=== PATIENT | female | born 1935 | race Caucasian/White ===

== ENCOUNTER 2017-04-20 14:02 | Emergency (ER) | payer OTHER ==
--- NOTE | 2017-04-20 14:42 | CPEKG ---
Heart Rate: 97 RR Interval: 619 P-R Interval: 156 QRSD Interval: 132 QT Interval: 384 QTC Interval: 488 P [place]: 73 QRS [place]: -40 T Wave [place]: 106 EKG Severity - ABNORMAL ECG - EKG Impression: SINUS TACHYCARDIA EKG Impression: MULTIPLE ATRIAL PREMATURE COMPLEXES EKG Impression: LEFT BUNDLE BRANCH BLOCK Electronically Signed By: Myra Paul 21-Apr-2017 00:28:11
--- NOTE | 2017-04-20 14:55 | EDPHY ---
H & P Stated Complaint: Cough x 1 mo;sent to ED from for eval of abnl EKG Time Seen by Provider: 04/20/17 14:52 HPI/ROS: CHIEF COMPLAINT: Abnormal EKG, cough HISTORY OF PRESENT ILLNESS: This patient is a pleasant 82 year old female arriving with her daughter following an abnormal EKG at urgent care earlier today. Previous EKGs show a left bundle branch, which is not new. She has had a productive cough and fatigue for the past month. She has been hospitalized twice for pneumonia, with the last hospitalization for pneumonia being a few years ago. She is in the process of moving to [place] from [place], and arrived here 04/08/17, two weeks ago. She has been coughing so much she feels quite exhausted, and has been sleeping much more than usual for her. She denies fever, sore throat, shortness of breath, abdominal pain, vomiting, diarrhea, constipation, or other associated symptoms. She denies any cardiac or respiratory history. No calf pain or swelling. REVIEW OF SYSTEMS: A ten point review of systems was performed and is negative with the exception of the items mentioned in the HPI. Source: Patient, Family Exam Limitations: No limitations - Personal History Current Tetanus Diphtheria and Acellular Pertussis (TDAP): Yes Tetanus Vaccine Date: < 10 YEARS - Medical/Surgical History PMH: 1. Hypertension 2. GERD Hx Asthma: No Hx Chronic Respiratory Disease: No Hx Diabetes: No Hx Cardiac Disease: Yes Hx Renal Disease: No Hx Cirrhosis: No Hx Alcoholism: No Hx HIV/AIDS: No Hx Splenectomy or Spleen Trauma: No Other PMH: MEDICAL- HTN, GERD, "blood disorder" saw rail filler 2 years ago(?) . PSH: DENIES - Social History Smoking Status: Never smoked Additional Social History: Nonsmoker. Occasional alcohol use. Daughter at bedside. - Physical Exam Exam: General Appearance: Alert. Vital signs reviewed. Blood pressure 157/93. Room air pulse ox 91%. Eyes: Pupils equal and round, no conjunctival injection, no discharge. Anicteric. ENT, Mouth: Mucous membranes are moist, no oropharyngeal erythema or edema. Neck: No lymphadenopathy, supple. Trachea midline. Respiratory: Bibasilar crackles. Breath sounds slightly distant. Cardiovascular: Mildly tachycardic; no murmur, rub, or gallop. Gastrointestinal: Abdomen is soft and nontender, no masses or organomegaly, bowel sounds normal. Skin: Warm and dry, no rashes on exposed skin, normal color. Back: Nontender to palpation over the thoracolumbar spine. No CVAT. Extremities: No lower extremity edema, no calf tenderness or swelling. Neurological: Alert and oriented. Moving all four extremities easily and equally. Psychiatric: Normal affect. Constitutional: Initial Vital Signs Temperature (C) 37.2 C 04/20/17 14:10 Heart Rate 78 04/20/17 14:10 Respiratory Rate 18 04/20/17 14:10 Blood Pressure 157/93 H 04/20/17 14:10 O2 Sat (%) 91 L 04/20/17 14:10 O2 Delivery Mode Room Air Allergies/Adverse Reactions: meperidine HCl [From Demerol] Allergy (Verified 04/20/17 14:16) Home Medications: Medication Instructions Recorded AZITHROMYCIN [Z-PACK] 250 mg PO DAILY #6 tab 04/20/17 Amoxicillin/Clavulanate Pot 875 mg PO BID #14 tab 04/20/17 [Augmentin 875 MG TAB (*)] Aspirin EC [Aspirin EC 81 mg (*)] 04/20/17 Triamterene [Dyrenium 50MG (*)] 100 mg PO DAILY 04/20/17 Medical Decision Making - Diagnostics EKG Interpretation: 12 lead EKG is interpreted in Trace master View by emergency department physician. There is a left bundle branch block. This was seen in a previous EKG done in 2015. Imaging Results: Chest x-ray reviewed by me. It shows a possible right lower lobe infiltrate. Chest CT is negative for pulmonary embolus. There is tubular bronchiectasis involving the right lower lung. This appears somewhat improved compared to a study done in 2015. However, there is concern for an infiltrate in the right lower lobe today. Imaging: Discussed imaging studies w/ weight caller Radiologist, I viewed and interpreted images myself ED Course/Re-evaluation: This patient is an 82 year old female presenting with 1 month history of cough. Abnormal EKG obtained at urgent care similar to patient's past EKGs, in that there is a left bundle branch block. Plan for chest x-ray, labs including CBC, Toponin, D-Dimer. D-dimer elevated at 0.80. Labs otherwise unremarkable. X-ray shows possible right lower lobe pneumonia. 16:25 Reassessed patient. Discussed x-ray results and elevated D-dimer. Plan for CTA chest to rule out PE, pneumonia. 17:[address] Xiao, radiologist. CTA negative for PE. Right lower lobe pneumonia likely. Discussed admission with patient. She was offered admission and is not interested in hospitalization. She understands that she likely has a pneumonia , presumed to be community-acquired. She is comfortable returning home on antibiotics. Pulse ox has been 90-91% on room air. She is not febrile or ill- appearing. White blood cell count is mildly elevated. She understands the risks of returning home and we discussed the danger signs that should prompt her to be re-evaluated. The patient and her daughter are comfortable returning home and treating with antibiotics. She has established care with a primary care physician in this area, although she cannot recall her name. I am recommending that she be re-evaluated within the next couple of days. We also discussed what appears to be some chronic lung disease. She is interested in seeing a news cameraman and I will leave this up to her primary care doctor in terms of her referral. She will be started on azithromycin and Augmentin. She did not feel that she needed a cough medication. We also discussed the possibility that altitude is figuring into this illness and contributing to her fatigue. Her blood pressure was slightly elevated in the emergency department. She will have this followed up by her primary care physician. She is taking antihypertensive medication. Differential Diagnosis: I considered a differential diagnosis including but not limited to pulmonary infectious process, COPD, asthma, pulmonary embolus and congestive heart failure. - Data Points Laboratory Results: Laboratory Results 04/20/17 14:45 04/20/17 14:45 Departure - Departure Disposition: Home, Routine, Self-Care Clinical Impression: Pneumonia Qualifiers: Pneumonia type: due to unspecified organism Laterality: right Lung location: lower lobe of lung Qualified Code(s): J18.1 - Lobar pneumonia, unspecified organism Condition: Good Instructions: Pneumonia (ED) Additional Instructions: 1. Follow up with your primary care provider - call tomorrow and let them know you were diagnosed with pneumonia in the emergency department. We referred you to our primary care provider business management consultant, but you can follow up with the doctor that you have already contacted at [facility]. 2. Take your Augmentin and Azithromycin as prescribed. It is important to finish your entire course of antibiotics. 3. Return to the Emergency Department if you develop difficulty breathing, high fever, chest pain, or uncontrollable coughing. Referrals: Autumn Coffman MD [Medical Doctor] - As per Instructions Prescriptions: Amoxicillin/Clavulanate Pot [Augmentin 875 MG TAB (*)] 875 mg PO BID #14 tab AZITHROMYCIN [Z-PACK] 250 mg PO DAILY #6 tab Report Scribed for: Myra Paul Report Scribed by: Heather Park Date of Report: 04/20/17 Time of Report: 15:25 Physician Review and Approval Statement: 04/20/17 14:55 Portions of this note were transcribed by the medical assistant dermatology. I, Dr. Myra Paul, personally performed the history, physical exam, and medical decision- making; and confirmed the accuracy of the information in the transcribed note.
[2017-04-20 15:35] LABS: % IMMATURE GRANULYOCYTES 0.5 % (0.0-1.1); ABSOLUTE IMMATURE GRANULOCYTES 0.05 10^3/uL (0.00-0.10); ADD DIFF? NO; ADD MORPH? NO; ADD SCAN? NO; ATYPICAL LYMPHOCYTE FLAG 0 (0-99); FRAGMENT RBC FLAG 0 (0-99); HEMATOCRIT 41.2 % (38.0-47.0); HEMOGLOBIN 14.4 g/dL (12.6-16.3); LEFT SHIFT FLG 0 (0-99); LIPEMIA HEMOLYSIS FLAG 90 (0-99); MEAN CELL HEMOGLOBIN 31.9 pg (27.9-34.1); MEAN CELL VOLUME 91.4 fL (81.5-99.8); PLATELET CLUMPS FLAG 0 (0-99); PLATELET COUNT 147 10^3/uL (150-400); RED BLOOD CELL COUNT 4.51 10^6/uL (4.18-5.33); RED CELL DISTRIBUTION WIDTH 12.6 % (11.5-15.2)
[2017-04-20 15:41] LABS: ANION GAP 12 mEq/L (8-16); CALCIUM 9.4 mg/dL (8.5-10.4); CARBON DIOXIDE 24 mEq/l (22-31); CHLORIDE 104 mEq/L (97-110); CREATININE 0.7 mg/dL (0.6-1.0); GLOMERULAR FILTRATION RATE > 60; GLUCOSE 127 mg/dL (70-100); POTASSIUM 3.4 mEq/L (3.5-5.2); SODIUM 140 mEq/L (134-144)
[2017-04-20 15:52] LABS: TROPONIN I 0.026 ng/mL (0-0.034)
[2017-04-20] MEDS ORDERED: IOPAMIDOL (ISOVUE 370) 100 ML BTL IV ONE ×2 (16:48→17:16)
[2017-04-20 18:26] VITALS: BP 132/93; PULSE 98; RESP 18; TEMP 98.2; O2SAT 90
== END 2017-04-20 18:26 | disposition home or self-care (01) ==
DX: J18.9 Pneumonia, unspecified organism (principal); I10 Essential (primary) hypertension; Z79.82 Long term (current) use of aspirin
CPT/HCPCS: 71020; 71275; 93005; 99285; Q9967

== ENCOUNTER 2017-08-28 10:24 | Day surgery (SDC) | payer OTHER ==
[2017-08-28] MEDS ORDERED: FAMOTIDINE 20 MG TAB PO ONE (10:29)
[2017-08-28] MEDS ORDERED: ASPIRIN EC 325 MG TAB PO ONE (10:29)
[2017-08-28] MEDS ORDERED: DIAZEPAM 5 MG TAB PO ONE (10:29)
[2017-08-28] MEDS ORDERED: diphenhydrAMINE 25 MG CAP PO ONE (10:29)
[2017-08-28] MEDS ORDERED: NS 1,000 ML IV ONE (10:29)
--- NOTE | 2017-08-28 11:25 | CPEKG ---
Heart Rate: 73 RR Interval: 822 P-R Interval: 168 QRSD Interval: 136 QT Interval: 444 QTC Interval: 490 P [place]: 66 QRS [place]: -51 T Wave [place]: 96 EKG Severity - ABNORMAL ECG - EKG Impression: SINUS RHYTHM EKG Impression: LEFT BUNDLE BRANCH BLOCK Electronically Signed By: Marshall Mccoy 28-Aug-2017 11:50:32
[2017-08-28 11:29] LABS: % IMMATURE GRANULYOCYTES 0.2 % (0.0-1.1); ABSOLUTE IMMATURE GRANULOCYTES 0.01 10^3/uL (0.00-0.10); ABSOLUTE NRBC COUNT 0.02 10^3/uL (0-0.01); ADD DIFF? NO; ADD MORPH? NO; ADD SCAN? NO; ATYPICAL LYMPHOCYTE FLAG 10 (0-99); FRAGMENT RBC FLAG 0 (0-99); HEMATOCRIT 40.2 % (38.0-47.0); HEMOGLOBIN 13.6 g/dL (12.6-16.3); LEFT SHIFT FLG 0 (0-99); LIPEMIA HEMOLYSIS FLAG 90 (0-99); MEAN CELL HEMOGLOBIN 30.7 pg (27.9-34.1); MEAN CELL HEMOGLOBIN CONCENTR. 33.8 g/dL (32.4-36.7); MEAN CELL VOLUME 90.7 fL (81.5-99.8); MEAN PLATELET VOLUME 11.6 fL (8.7-11.7); NRBC-AUTO% 0.4 % (0.0-0.2); PLATELET CLUMPS FLAG 0 (0-99); PLATELET COUNT 128 10^3/uL (150-400); RED BLOOD CELL COUNT 4.43 10^6/uL (4.18-5.33); RED CELL DISTRIBUTION WIDTH 13.9 % (11.5-15.2)
[2017-08-28 11:34] LABS: INR 0.98 (0.83-1.16); PROTIME(PATIENT) 12.9 SEC (12.0-15.0)
[2017-08-28 11:54] LABS: ANION GAP 11 mEq/L (8-16); CALCIUM 9.6 mg/dL (8.5-10.4); CARBON DIOXIDE 26 mEq/l (22-31); CHLORIDE 104 mEq/L (97-110); CHOLESTEROL 203 mg/dL (140-220); CHOLESTEROL/HDL RATIO 2.94 RATIO (1.00-4.44); CREATININE 0.8 mg/dL (0.6-1.0); GLOMERULAR FILTRATION RATE > 60; GLUCOSE 111 mg/dL (70-100); HIGH DENSITY LIPOPROTEIN 69 mg/dL (40-85); LDL/HDL RATIO 1.74 RATIO (1.00-3.22); LOW DENSITY LIPOPROTEIN 120 mg/dL (80-100); NON-HIGH DENSITY LIPOPROTEIN 134 mg/dL (90-129); POTASSIUM 4.4 mEq/L (3.5-5.2); SODIUM 141 mEq/L (134-144); TRIGLYCERIDE 70 mg/dL (35-135); VERY LOW DENSITY LIPOPROTEINS 14 mg/dL (8-25)
--- NOTE | 2017-08-28 14:23 | PDPROPOC ---
Sedation Plan of Care Sedation Plan of Care: vital signs stable, mental status noted, patient educated of risks, benefits, alternatives, patient can tolerate sedation ASA Classification: ASA 2 Planned drugs: fentanyl, midazolam Mallampati Score: Class 1 Mallampati Reference Image: Patient passed 3-3-2 rule?: Yes
--- NOTE | 2017-08-28 14:23 | PDHPUP ---
History & Physical Update H&P update statement: This history and physical update is based on an assessment of the patient which was completed after admission or registration (within 24 hours), but prior to the surgery/procedure. H&P update: H&P reviewed & patient examined, no change in patient's condition since H&P completed
--- NOTE | 2017-08-28 15:30 | PDDXCAT ---
Diagnostic Cath Note - . Date: 08/28/17 Frame Catcher: Noah Indication: other (Acute on chronic systolic CHF; Cardiomyopathy with worsening LV systolic function) - Procedure Access: right groin Procedure: left heart catheterization, coronary angiography, left ventriculogram , right heart catheterization - Materials Left Heart Cath size: 6F Left Heart Cath materials: standard multipack (JL4, JR4, pigtail) Right Heart Cath size: 7F Right Heart Cath materials: PWP catheter - Findings-Left Heart Catheterization LM: Normal. LAD: Diffuse disease in the proximal to mid-LAD up to 50%; otherwise mild irregularities. LCX: Serial lesions in the mid-circumflex of 40% and 60%. RCA: Minimal irregularities. EDP: 30 mmHg LVEF: 25% Wall motion: Global hypokinesis. - Findings-Right Heart Catheterization RA: 24 mmHg RV: 40/18/22 mmHg PA: 38/22/29 mmHg O2 sat 76.8% PAOP: 24 mmHg AO: 151/72/94 mmHg O2 sat 98.2% Complications: None Estimated blood loss: <50ml Closure method: manual pressure Assessment: 1) Cardiomyopathy with severely reduced LV systolic function. 2) CAD as described above. 3) Elevated right heart pressures. Plan: The patient has significant, but not critical, two-vessel CAD involving the LAD and circumflex. She had a cardiomyopathy with severely reduced left ventricular systolic function and a pattern of global hypokinesis. She is not experiencing angina. A recent nuclear stress test was negative for evidence of ischemia or infarction. Given her essentially normal appearing RCA, I did not think this was a case of "balanced ischemia" on nuclear imaging. Therefore, the decision was made not to proceed with ad hoc PCI. I think the findings of her catheterization should be discussed with her before making a decision to proceed with revascularization. Patient Problems: Problems Problem Status Onset Hypoxia Acute Pneumonia Acute
[2017-08-28] MEDS ORDERED: ATROPINE SULFATE 1 MG/10 ML SYR ONE (15:32)
[2017-08-28] MEDS ORDERED: HYDROCODONE/APAP 5/325 TAB PO PRN (15:45)
[2017-08-28] MEDS ORDERED: ATROPINE SULFATE 1 MG/10 ML SYR IVP PRN (15:45)
[2017-08-28] MEDS ORDERED: ONDANSETRON 4 MG/2 ML VIAL IVP PRN (15:45)
[2017-08-28] MEDS ORDERED: NITROGLYCERIN 0.4 MG BTL SL PRN (15:45)
== END 2017-08-28 19:39 | disposition home or self-care (01) ==
LOC: FCATH 10:24
PROVIDERS: ATTEND Internal Medicine Interventional Cardiology
PROC: 4A023N8 Measurement of Cardiac Sampling and Pressure, Bilateral, Percutaneous Approach (ICD-10-PCS; principal; 2017-08-28)
PROC: B2151ZZ Fluoroscopy of Left Heart using Low Osmolar Contrast (ICD-10-PCS; principal; 2017-08-28)
PROC: B2111ZZ Fluoroscopy of Multiple Coronary Arteries using Low Osmolar Contrast (ICD-10-PCS; principal; 2017-08-28)
DX: I50.21 Acute systolic (congestive) heart failure (principal); I11.0 Hypertensive heart disease with heart failure; R06.02 Shortness of breath; I44.7 Left bundle-branch block, unspecified; K21.9 Gastro-esophageal reflux disease without esophagitis; Z87.01 Personal history of pneumonia (recurrent)
CPT/HCPCS: J0461

== ENCOUNTER → 2018-06-25 | Outpatient (CLI) | payer OTHER | LOC: BMCIMAGING 13:31 | PROVIDERS: ATTEND Internal Medicine | DX: R22.1 Localized swelling, mass and lump, neck (principal) | CPT/HCPCS: 76536-PO ==

== ENCOUNTER 2018-07-14 12:04 | Emergency (ER) | payer OTHER ==
--- NOTE | 2018-07-14 12:33 | EDPHY ---
H & P [facility] pain Time Seen by Provider: 07/14/18 12:33 - Personal History Tetanus Vaccine Date: < 10 YEARS - Medical/Surgical History Hx Asthma: No Hx Chronic Respiratory Disease: No Hx Diabetes: No Hx Cardiac Disease: Yes Hx Renal Disease: No Hx Cirrhosis: No Hx Alcoholism: No Hx HIV/AIDS: No Hx Splenectomy or Spleen Trauma: No Other PMH: MEDICAL- HTN, GERD, CHF. PSH: DENIES - Social History Smoking Status: Never smoked Constitutional: Initial Vital Signs Temperature (C) 36.9 C 07/14/18 12:09 Heart Rate 81 07/14/18 12:09 Respiratory Rate 16 07/14/18 12:09 Blood Pressure 197/85 H 07/14/18 12:09 O2 Sat (%) 98 07/14/18 12:09 O2 Delivery Mode Room Air Allergies/Adverse Reactions: meperidine HCl [From Demerol] Allergy (Verified 08/21/17 13:19) Home Medications: Medication Instructions Recorded Aspirin EC [Aspirin EC 81 mg (*)] 81 mg PO DAILY 08/21/17 Carvedilol [Coreg (*)] 6.25 mg PO BIDMEAL 08/21/17 Cholecalciferol Vit D3 [Vitamin D3 2,000 units PO DAILY 08/21/17 2000 units tab (OTC)] Lysine 500 mg PO DAILY 08/21/17 [place]-3 Fatty Acids [Fish Oil 1000 1,000 mg PO DAILY 08/21/17 mg (*)] Quinapril HCl [Accupril 20 MG] 20 mg PO DAILY 08/21/17 Spironolactone [Aldactone 25 MG 25 mg PO DAILY 08/21/17 (*)] Triamterene/Hydrochlorothiazid 1 each PO DAILY 08/21/17 [Triamterene-Hctz 37.5-25 mg Tb] Ubidecarenone [Co Q-10 200 mg] 200 mg PO DAILY 08/21/17 Hydrocodone/APAP 5/325 [Thayer 0.5 - 1 each PO Q4-6PRN PRN #10 tab 07/14/18 5/325] Lidocaine 4%/Menthol 1% [Icy Hot 1 patch TD DAILY #10 patch 07/14/18 Lidocaine/Menthol 4%/1% Patch (*)] Medical Decision Making - Diagnostics Imaging Results: Imaging Impressions Ribs w/Chest X-Ray 07/14/18 12:34 Impression: 1. Nondisplaced fractures left lateral seventh through 10th ribs. 2. Development of small left effusion. 3. Bronchiectasis right mid to lower lung. Imaging: I viewed and interpreted images myself ED Course/Re-evaluation: CHIEF COMPLAINT: Rib pain HISTORY OF PRESENT ILLNESS: The patient is an 83 y/o female complaining of rib pain secondary to a fall 4 days ago. She tripped while walking in the dark and landed on a coffee table. Her pain is localized to her left posterolateral ribcage. Pain is much worse with movement, coughing, and deep inspiration. She has been treating her pain with heating pad, Salonpas, and ibuprofen with no improvement. REVIEW OF SYSTEMS: A comprehensive 10 system review of systems is otherwise negative aside from elements mentioned in the history of present illness and medical decision making. PHYSICAL EXAM: HR, BP, O2 Sat, RR. Temp noted General Appearance: Alert, well hydrated, appropriate, and non-toxic appearing. Head: Atraumatic without scalp tenderness or obvious injury Eyes: Pupils equal, round, reactive to light and accommodation, EOMI, no trauma , no injection. Nose: Atraumatic, no rhinorrhea, clear. Throat: There is no erythema or exudates, no lesions, normal tonsils, mucus membranes moist. Neck: Supple, nontender, no lymphadenopathy. Respiratory: No retractions, no distress, no wheezes, and no accessory muscle use. Lungs are clear to auscultation bilaterally. Chest: Ecchymosis and tenderness to left lateral rib cage. Cardiovascular: Regular rate and rhythm, no murmurs, rubs, or gallops. Good capillary refill all extremities. Gastrointestinal: Abdomen is soft, nontender, non-distended, no masses, no rebound, no guarding, no peritoneal signs. Musculoskeletal: Normal active ROM of all extremities, atraumatic. Neurological: Alert, appropriate, and interactive. The patient has non-focal cranial nerves, motor, sensory, and cerebellar exam. Skin: No rashes, good turgor, no nodules on palpation. Past medical history: Hypertension, GERD, CHF Past surgical history: Noncontributory Family history: Noncontributory Social history: Nonsmoker. Lives in [place]. Retired. DIAGNOSTICS/PROCEDURES/CRITICAL CARE TIME: Chest x-ray: rib fractures 7,8,9,10 on left side DIFFERENTIAL DIAGNOSIS: The differential diagnosis for the patient's pain included but was not limited to rib fracture, rib contusion, and intra-thoracic injury. MEDICAL DECISION MAKING: This is an 83 y/o female who presents with a 4-day history of localized left posterolateral rib pain secondary to a mechanical fall. Home remedies have not controlled symptoms. She has ecchymosis at the site and I suspect a fracture rib. Plan for chest x-ray and symptom management. Lidocaine patch ordered. Reassessed patient and discussed findings. She has multiple buckle fractures and a minimally-displaced rib fracture on the left side. Discussed pain management options. The lidocaine patch has helped during her time here. We discussed increasing her ibuprofen dose from 200mg daily to 400mg TID for pain as well as using an incentive spirometer. She will also be given a script for a low dose of narcotic pain medication with strict instructions on when and how to use this. She will be discharged with standard care and follow up instructions. Return precautions discussed. - Data Points Medications Given: Discontinued Medications Miscellaneous Medication (Icy Hot Lidocaine/Menthol 4%/1% Patch) 1 patch TD EDNOW ONE Stop: 07/14/18 12:57 Last Admin: 07/14/18 13:09 Dose: 1 patch Departure - Departure Disposition: Home, Routine, Self-Care Clinical Impression: Rib fracture Qualifiers: Encounter type: initial encounter Rib fracture type: multiple ribs Fracture type: closed Laterality: left Qualified Code(s): S22.42XA - Multiple fractures of ribs, left side, initial encounter for closed fracture Condition: Good Instructions: Ibuprofen (By mouth), Lidocaine (On the skin), How to Use an Incentive Spirometer (ED), Rib Fracture (ED) Additional Instructions: 1. Use lidocaine patches as prescribed every 12 hours directly on sore areas. 2. Use 400mg ibuprofen three times daily for the next week for pain and inflammation. If you get stomach upset with this, please take it with food. 3. Take Thayer as prescribed when needed for severe pain and/or at bedtime. Take 1/2 to 1 tablet at a time. This is a small dose to start with. 4. Use incentive spirometer as directed to ensure you are taking full and complete breaths. 5. Follow up with your primary care provider as needed. 6. Return to the ED for worsening of condition. Referrals: Katerina Brown MD [Primary Care Provider] - As per Instructions Prescriptions: Hydrocodone/APAP 5/325 [Thayer 5/325] 0.5 - 1 each PO Q4-6PRN PRN #10 tab PRN Reason: Pain, Moderate Lidocaine 4%/Menthol 1% [Icy Hot Lidocaine/Menthol 4%/1% Patch (*)] 1 patch TD DAILY #10 patch Report Scribed for: Jass Elizabeth Report Scribed by: Penny Berrios Date of Report: 07/14/18 Time of Report: 12:53
[2018-07-14] MEDS ORDERED: LIDOCAINE 4%/MENTHOL 1% PATCH TD ONE (12:56)
[2018-07-14 13:57] VITALS: BP 148/118
[2018-07-14] MEDS ORDERED: PATCH REMOVAL 1 EA PATCH TD SCH (21:00)
== END 2018-07-14 13:55 | disposition home or self-care (01) ==
DX: S22.42XA Multiple fractures of ribs, left side, initial encounter for closed fracture (principal); W01.190A Fall on same level from slipping, tripping and stumbling with subsequent striking against furniture, initial encounter; Y99.8 Other external cause status

== ENCOUNTER → 2018-09-13 | Outpatient (CLI) | payer OTHER | LOC: BMCIMAGING 09:55 | PROVIDERS: ATTEND Internal Medicine | DX: Z13.820 Encounter for screening for osteoporosis (principal); M81.0 Age-related osteoporosis without current pathological fracture ==

== ENCOUNTER → 2019-03-14 | Outpatient (CLI) | payer OTHER | LOC: FIMAGING 09:56 ==